=== PATIENT | female | born 1995 | race Caucasian/White ===

== ENCOUNTER 2023-01-04 11:17 | Emergency (ER) | payer BC, OTHER ==
[2023-01-04] MEDS ORDERED: Morphine 4 MG/ML VIAL ONE (12:07)
[2023-01-04] MEDS ORDERED: Ondansetron ODT 4 MG TAB ONE (12:07)
[2023-01-04] MEDS ORDERED: Lidocaine 1% (PF) 30 ML VIAL ONE (12:07)
== END 2023-01-04 13:11 | disposition home or self-care (01) ==
LOC: CSHERS 11:17
DX: N76.4 Abscess of vulva (principal); F17.290 Nicotine dependence, other tobacco product, uncomplicated; Z79.899 Other long term (current) drug therapy
CPT/HCPCS: 56405; 96372; J2001; J2270; Q0162

== ENCOUNTER 2023-09-29 14:47 | Emergency (ER) | payer BC ==
[2023-09-29 16:08] LABS: SARS-CoV-2 NAA Rapid Test Not Detected (NotDetected)
[2023-09-29 16:27] LABS: Bilirubin Neg (Negative); Blood, Urine Negative (Negative); Clarity Clear (Clear); Glucose, Urine (Dipstick) Normal (Negative); Ketone, Urine Negative (Negative); Leukocyte Negative (Negative); Nitrite Negative (Negative); Protein, Urine (Dipstick) 15 mg/dl (Neg-Trace); Urobilinogen Normal mg/dL (Less than 2)
[2023-09-29] MEDS ORDERED: Ondansetron PF 4 MG/2 ML Vial ONE (16:40)
[2023-09-29 16:41] LABS: Bacteria/HPF 1+ HPF (None Seen); CAUTI Indications for Culture Pregnancy; RBC/HPF 0-3 HPF (0-3); Squamous Epithelial 0-3 HPF (0-3); WBC/HPF 0-3 HPF (0-3)
[2023-09-29 16:43] LABS: Urine Culture Reflex Yes Yes
== END 2023-09-29 18:02 | disposition home or self-care (01) ==
LOC: CSHERS 14:47
DX: O99.512 Diseases of the respiratory system complicating pregnancy, second trimester (principal); J10.1 Influenza due to other identified influenza virus with other respiratory manifestations; I10 Essential (primary) hypertension; Z3A.24 24 weeks gestation of pregnancy; Z87.891 Personal history of nicotine dependence
CPT/HCPCS: 81001; 87077; 87086; 96374; J2405

== ENCOUNTER 2023-10-20 16:00 | Observation (INO) | payer BC ==
[2023-10-20 16:15] VITALS: BMI 25.0
[2023-10-20] MEDS ORDERED: Acetaminophen 500 MG TAB PO PRN (17:13)
[2023-10-20 17:38] LABS: #Eosinphils 0.2 10x3/uL (0.0-0.5); #Monocytes 0.6 10x3/uL (0.0-1.1); #Neutrophils 9.6 10x3/uL (1.5-8.4); %Basophils 0.3 % (0.0-2.0); %Eosinophils 1.7 % (0.0-6.0); %Lymphocytes 18.6 % (18.0-47.0); %Monocytes 4.2 % (0.0-10.0); %Neutrophils 74.4 % (40.0-75.0); Hematocrit 32.7 % (34.9-44.5); Hemoglobin 11.5 g/dL (12.0-15.5); Mean Corpuscular HGB CONC 35.2 g/dL (32.0-36.0); Mean Corpuscular Hemoglobin 31.3 pg (27.0-33.0); Mean Corpuscular Volume 89.1 fl (81.6-98.3); Platelet Count 339 10x3/uL (150-450); RBC Distribution Width 12.2 % (11.5-14.5); Red Blood Cell (RBC) Count 3.67 10x6/uL (3.90-5.03)
[2023-10-20 17:48] LABS: ALT (SGPT) 13 U/L (8-55); AST (SGOT) 15 U/L (5-34); Albumin 3.8 g/dL (3.5-5.0); Alkaline Phosphatase 86 U/L (40-110); Anion Gap 12 mmol/L (10-20); BUN (Urea Nitrogen) 5 mg/dL (7.0-18.7); Bilirubin, Total 0.5 mg/dL (0.2-1.2); Calc. Creatinine Clearance 116 mL/min (70-130); Calcium 8.8 mg/dL (7.8-10.44); Carbon Dioxide 22 mmol/L (22-29); Chloride 106 mmol/L (98-107); Estimated GFR 123; Globulin 3.3 g/dL (2.4-3.5); Glucose 82 mg/dL (70-105); Potassium 3.3 mmol/L (3.5-5.1); Protein, Total 7.1 g/dL (6.0-8.3); Sodium 137 mmol/L (136-145)
[2023-10-20 18:19] LABS: Bilirubin Neg (Negative); Blood, Urine 150 (Negative); Clarity Clear (Clear); Glucose, Urine (Dipstick) Normal (Negative); Ketone, Urine Negative (Negative); Leukocyte 500 (Negative); Nitrite Negative (Negative); Protein, Urine (Dipstick) 100 mg/dl (Neg-Trace); Specific Gravity, Urine 1.005 (1.005-1.030); Urobilinogen Normal mg/dL (Less than 2)
[2023-10-20] MEDS ORDERED: Ondansetron PF 4 MG/2 ML Vial IVP PRN (18:25)
[2023-10-20 18:26] LABS: Bacteria/HPF 4+ HPF (None Seen); CAUTI Indications for Culture Dysuria,urgency,freq; RBC/HPF 0-3 HPF (0-3); Squamous Epithelial 0-3 HPF (0-3)
[2023-10-20 18:27] LABS: Mucous/LPF 2+ LPF (<2+); Urine Culture Reflex Yes Yes
[2023-10-20] MEDS: Acetaminophen 500 MG TAB PO PRN (18:39)
[2023-10-20] MEDS: Potassium Chloride 20 MEQ TAB PO SCH (18:40)
[2023-10-20] MEDS: Lactated Ringer's 1,000 ML IV SCH (19:51)
[2023-10-20] MEDS: Piperacillin/Tazobactam 3.375 GM in Sodium Chloride 0.9% 100 ML IVPB SCH ×2 (19:52→22:04)
[2023-10-21 03:53] LABS: #Basophils 0.1 10x3/uL (0.0-0.2); #Eosinphils 0.3 10x3/uL (0.0-0.5); #Monocytes 0.7 10x3/uL (0.0-1.1); %Basophils 0.6 % (0.0-2.0); %Eosinophils 3.1 % (0.0-6.0); %Lymphocytes 28.6 % (18.0-47.0); %Monocytes 6.9 % (0.0-10.0); %Neutrophils 59.8 % (40.0-75.0); Hematocrit 28.7 % (34.9-44.5); Hemoglobin 9.9 g/dL (12.0-15.5); Mean Corpuscular HGB CONC 34.5 g/dL (32.0-36.0); Mean Corpuscular Hemoglobin 31.7 pg (27.0-33.0); Platelet Count 286 10x3/uL (150-450); RBC Distribution Width 12.4 % (11.5-14.5); Red Blood Cell (RBC) Count 3.12 10x6/uL (3.90-5.03)
[2023-10-21 03:59] LABS: Anion Gap 9 mmol/L (10-20); BUN (Urea Nitrogen) 6 mg/dL (7.0-18.7); Calc. Creatinine Clearance 119 mL/min (70-130); Calcium 7.9 mg/dL (7.8-10.44); Carbon Dioxide 21 mmol/L (22-29); Chloride 110 mmol/L (98-107); Estimated GFR 124; Glucose 78 mg/dL (70-105); Potassium 3.8 mmol/L (3.5-5.1); Sodium 136 mmol/L (136-145)
[2023-10-21] MEDS: Prenatal Vitamin 1 TAB PO SCH (09:25)
[2023-10-21] MEDS: FLUoxetine HCl 20 MG CAP PO SCH (09:25)
[2023-10-21] MEDS: HYDROcodone/Acetaminophen 5/325 mg Tablet PO PRN (23:18)
[2023-10-22 04:14] LABS: #Eosinphils 0.3 10x3/uL (0.0-0.5); #Monocytes 0.6 10x3/uL (0.0-1.1); #Neutrophils 7.4 10x3/uL (1.5-8.4); %Basophils 0.4 % (0.0-2.0); %Eosinophils 2.5 % (0.0-6.0); %Lymphocytes 25.4 % (18.0-47.0); %Monocytes 5.2 % (0.0-10.0); %Neutrophils 65.5 % (40.0-75.0); Hematocrit 30.7 % (34.9-44.5); Hemoglobin 10.7 g/dL (12.0-15.5); Mean Corpuscular HGB CONC 34.9 g/dL (32.0-36.0); Mean Corpuscular Hemoglobin 31.3 pg (27.0-33.0); Mean Corpuscular Volume 89.8 fl (81.6-98.3); Mean Platelet Volume 8.9 fl (7.4-10.4); Platelet Count 282 10x3/uL (150-450); RBC Distribution Width 12.4 % (11.5-14.5); Red Blood Cell (RBC) Count 3.42 10x6/uL (3.90-5.03); White Blood Cell (WBC) Count 11.2 10x3/uL (3.5-10.5)
[2023-10-22 04:43] LABS: Anion Gap 12 mmol/L (10-20); BUN (Urea Nitrogen) Less than 4 mg/dL (7.0-18.7); Calc. Creatinine Clearance 125 mL/min (70-130); Calcium 8.2 mg/dL (7.8-10.44); Carbon Dioxide 21 mmol/L (22-29); Chloride 109 mmol/L (98-107); Estimated GFR 125; Glucose 77 mg/dL (70-105); Potassium 3.7 mmol/L (3.5-5.1); Sodium 138 mmol/L (136-145)
[2023-10-22 07:27] VITALS: BP 111/70; TEMP 98.8
== END 2023-10-22 10:15 | disposition home or self-care (01) ==
LOC: CSHLD/OP 16:00 → CSHLD 18:25 → CSHANTE 20:42
PROVIDERS: ADMIT Family Medicine; ATTEND Family Medicine
DX: O99.891 Other specified diseases and conditions complicating pregnancy (principal); N13.2 Hydronephrosis with renal and ureteral calculous obstruction; M79.18 Myalgia, other site; O23.42 Unspecified infection of urinary tract in pregnancy, second trimester; Z3A.27 27 weeks gestation of pregnancy; Z88.1 Allergy status to other antibiotic agents; Z91.018 Allergy to other foods; Z79.2 Long term (current) use of antibiotics; Z79.1 Long term (current) use of non-steroidal anti-inflammatories (NSAID); Z79.891 Long term (current) use of opiate analgesic
CPT/HCPCS: 36415; 76775; 80048; 80053; 81001; 85025; 87077; 87086; 94760; 99285; J2543; J3490; J7120

== ENCOUNTER 2023-11-21 15:18 | Emergency (ER) | payer BC ==
[2023-11-21] MEDS ORDERED: Morphine 4 MG/ML VIAL ONE ×2 (15:59→17:10)
[2023-11-21] MEDS ORDERED: Ondansetron PF 4 MG/2 ML Vial ONE ×2 (15:59→17:10)
[2023-11-21 16:23] LABS: #Eosinphils 0.2 10x3/uL (0.0-0.5); #Monocytes 0.6 10x3/uL (0.0-1.1); #Neutrophils 11.1 10x3/uL (1.5-8.4); %Basophils 0.2 % (0.0-2.0); %Eosinophils 1.2 % (0.0-6.0); %Lymphocytes 16.8 % (18.0-47.0); %Monocytes 4.1 % (0.0-10.0); %Neutrophils 76.7 % (40.0-75.0); Hematocrit 38.6 % (34.9-44.5); Mean Corpuscular HGB CONC 33.7 g/dL (32.0-36.0); Mean Corpuscular Hemoglobin 31.2 pg (27.0-33.0); Mean Corpuscular Volume 92.6 fl (81.6-98.3); Mean Platelet Volume 9.6 fl (7.4-10.4); Platelet Count 381 10x3/uL (150-450); RBC Distribution Width 13.2 % (11.5-14.5); Red Blood Cell (RBC) Count 4.17 10x6/uL (3.90-5.03); White Blood Cell (WBC) Count 14.5 10x3/uL (3.5-10.5)
[2023-11-21 16:38] LABS: Bilirubin Neg (Negative); Blood, Urine 250 (Negative); Clarity Clear (Clear); Glucose, Urine (Dipstick) 100 mg/dL (Negative); Ketone, Urine Negative (Negative); Leukocyte 100 (Negative); Nitrite Negative (Negative); Protein, Urine (Dipstick) 100 mg/dl (Neg-Trace); Urobilinogen Normal mg/dL (Less than 2)
[2023-11-21 16:41] LABS: ALT (SGPT) 21 U/L (8-55); AST (SGOT) 24 U/L (5-34); Albumin 4.1 g/dL (3.5-5.0); Alkaline Phosphatase 117 U/L (40-110); Anion Gap 16 mmol/L (10-20); BUN (Urea Nitrogen) 8 mg/dL (7.0-18.7); Bilirubin, Total 0.3 mg/dL (0.2-1.2); Calc. Creatinine Clearance 0 mL/min (70-130); Calcium 9.5 mg/dL (7.8-10.44); Carbon Dioxide 21 mmol/L (22-29); Chloride 103 mmol/L (98-107); Estimated GFR 122; Globulin 3.9 g/dL (2.4-3.5); Glucose 121 mg/dL (70-105); Potassium 3.9 mmol/L (3.5-5.1); Sodium 136 mmol/L (136-145)
[2023-11-21 16:52] LABS: CAUTI Indications for Culture Urological Procedure
[2023-11-21 16:53] LABS: Bacteria/HPF 2+ HPF (None Seen); Calcium Oxalate Crystals 2+ HPF (None Seen); Mucous/LPF 1+ LPF (<2+); Squamous Epithelial 0-3 HPF (0-3)
[2023-11-21 16:54] LABS: Urine Culture Reflex Yes Yes
[2023-11-21 17:02] LABS: Bilirubin Neg (Negative); Blood, Urine 10 (Negative); Clarity Clear (Clear); Glucose, Urine (Dipstick) 100 mg/dL (Negative); Ketone, Urine Negative (Negative); Leukocyte Negative (Negative); Nitrite Negative (Negative); Protein, Urine (Dipstick) 30 mg/dl (Neg-Trace); Urobilinogen Normal mg/dL (Less than 2)
[2023-11-21] MEDS ORDERED: Morphine 2 MG/ML VIAL ONE (17:12)
[2023-11-21 17:34] LABS: Bacteria/HPF None Seen HPF (None Seen); CAUTI Indications for Culture Pregnancy; RBC/HPF 0-3 HPF (0-3); Squamous Epithelial 0-3 HPF (0-3); WBC/HPF 0-3 HPF (0-3)
== END 2023-11-21 17:55 | disposition home or self-care (01) ==
LOC: CSHERS 15:18
DX: O26.93 Pregnancy related conditions, unspecified, third trimester (principal); R10.9 Unspecified abdominal pain; O9A.213 Injury, poisoning and certain other consequences of external causes complicating pregnancy, third trimester; T83.84XA Pain due to genitourinary prosthetic devices, implants and grafts, initial encounter; Z87.891 Personal history of nicotine dependence
CPT/HCPCS: 80053; 81001; 83605; 85025; 87040; 87086; 96374; 96375; 96376; J2270; J2272; J2405

== ENCOUNTER 2025-06-03 09:22 | Inpatient (IN) | payer OTHER ==
[2025-06-03] MEDS ORDERED: Carboprost 250 MCG/ML AMP IM PRN (10:23)
[2025-06-03] MEDS ORDERED: Methylergonovine 0.2 MG/ML VIAL IM PRN (10:23)
[2025-06-03] MEDS ORDERED: Tranexamic Acid 1,000 MG/10 ML VIAL IVP PRN (10:23)
[2025-06-03] MEDS ORDERED: Lidocaine 1% (PF) 30 ML VIAL SC PRN (10:23)
[2025-06-03] MEDS ORDERED: hydrALAZINE 20 MG/ML VIAL SLOW IVP PRN ×2 (10:23)
[2025-06-03] MEDS ORDERED: Ibuprofen 800 MG TAB PO PRN (10:23)
[2025-06-03] MEDS ORDERED: Ondansetron PF 4 MG/2 ML Vial IVP PRN ×3 (10:23→21:41)
[2025-06-03] MEDS ORDERED: HYDROcodone/Acetaminophen 5/325 mg Tablet PO PRN (10:23)
[2025-06-03] MEDS ORDERED: Diphenoxylate HCl/Atropine Tablet PO PRN ×2 (10:23)
[2025-06-03] MEDS ORDERED: Oxytocin 30 units/NS 500 ML 500 ML IV SCH ×3 (10:30)
[2025-06-03 10:45] LABS: Hematocrit 38.5 % (34.9-44.5); Hemoglobin 12.8 g/dL (12.0-15.5); Mean Corpuscular Hemoglobin 30.3 pg (27.0-33.0); Mean Corpuscular Volume 91.0 fL (81.6-98.3); Platelet Count 302 10x3/uL (150-450); Red Blood Cell (RBC) Count 4.23 10x6/uL (3.90-5.03); White Blood Cell (WBC) Count 17.09 10x3/uL (3.5-10.5)
[2025-06-03] MEDS: Ondansetron PF 4 MG/2 ML Vial ONE (10:54)
[2025-06-03 11:07] VITALS: BMI 25.4
[2025-06-03 11:24] LABS: Hep B Surf Ag - L&D Non-Reactive S/CO (NonReactive)
[2025-06-03 11:26] LABS: Syphilis Antibody Index 3.08 S/CO (<1.00 Non-Reactive)
[2025-06-03] MEDS: Penicillin G Potassium 5 MILL.UNITS in Sodium Chloride 0.9% 100 ML IVPB SCH (11:28)
[2025-06-03 12:45] LABS: Syphilis Titer Non-Reactive Titer (Nonreactive)
[2025-06-03] MEDS: Penicillin G 2.5 MILL.units 2.5 MILL.UNITS in Premix 1 BAG IVPB SCH (16:14)
[2025-06-03] MEDS: fentaNYL/Ropivacaine Epidural 100 ML ONE (21:41)
[2025-06-03] MEDS ORDERED: diphenhydrAMINE 50 MG/ML VIAL IVP PRN (21:41)
[2025-06-03] MEDS ORDERED: Communication Order-Pharmacy FS SCH (21:45)
[2025-06-04] MEDS: fentaNYL 2 mcg/Ropivacaine 0.2% Epidural 100 ML CADD EPIDURAL SCH (09:58)
[2025-06-04] MEDS: Oxytocin 30 units/NS 500 ML 500 ML IV SCH (13:17)
[2025-06-04] MEDS ORDERED: hydrALAZINE 20 MG/ML VIAL SLOW IVP PRN (23:02)
[2025-06-04] MEDS ORDERED: Milk Of Magnesia 30 ML UDCUP PO PRN (23:02)
[2025-06-04] MEDS ORDERED: Bisacodyl 10 MG SUPP PR PRN (23:02)
[2025-06-04] MEDS ORDERED: Benzocaine-Menthol 82.5 ML CAN TOP PRN (23:02)
[2025-06-04] MEDS ORDERED: Lanolin Ointment 7 GM TUBE TOP PRN (23:02)
[2025-06-05] MEDS: Ibuprofen 800 MG TAB PO SCH ×2 (00:35→11:13)
[2025-06-05] MEDS: Cyclobenzaprine 10 MG TAB PO SCH (01:41)
[2025-06-05] MEDS: Ondansetron PF 4 MG/2 ML Vial IVP PRN (03:51)
[2025-06-05] MEDS: Acetaminophen 325 MG TAB PO PRN (05:45)
[2025-06-05 06:05] LABS: ALT (SGPT) 11 U/L (Less than 34); AST (SGOT) 24 U/L (11-34); Albumin 2.1 g/dL (3.1-4.5); Alkaline Phosphatase 78 U/L (40-110); Anion Gap 12 mmol/L (10-20); BUN (Urea Nitrogen) 5 mg/dL (7.0-18.7); Bilirubin, Total 0.5 mg/dL (0.3-1.2); Calc. Creatinine Clearance 122 mL/min (70-130); Calcium 8.1 mg/dL (7.8-10.44); Carbon Dioxide 19 mmol/L (22-29); Chloride 110 mmol/L (98-107); Globulin 3.0 g/dL (2.4-3.5); Glucose 145 mg/dL (70-105); Potassium 3.6 mmol/L (3.5-5.1); Sodium 137 mmol/L (136-145)
[2025-06-05] MEDS: Boostrix 0.5 ML (Tdap) VIAL (>/=7 yrs of age) IM ONE (07:50)
[2025-06-05] MEDS: Ferrous Sulfate 325 MG TAB PO SCH (10:04)
[2025-06-05] MEDS: Cyclobenzaprine 10 MG TAB PO PRN (11:17)
[2025-06-05] MEDS: Ibuprofen 200 MG TAB PO PRN (19:44)
[2025-06-06 07:52] LABS: #Basophils 0.04 10x3/uL (0.0-0.2); #Eosinophils 0.40 10x3/uL (0.0-0.5); #Monocytes 0.61 10x3/uL (0.0-1.1); #Neutrophils 8.23 10x3/uL (1.5-8.4); %Basophils 0.3 % (0.0-2.0); %Eosinophils 3.1 % (0.0-6.0); %Lymphocytes 28.3 % (18.0-47.0); %Monocytes 4.7 % (0.0-10.0); %Neutrophils 62.7 % (40.0-75.0); Hematocrit 25.0 % (34.9-44.5); Hemoglobin 8.3 g/dL (12.0-15.5); Mean Corpuscular Hemoglobin 30.6 pg (27.0-33.0); Mean Corpuscular Volume 92.3 fL (81.6-98.3); Platelet Count 249 10x3/uL (150-450); Red Blood Cell (RBC) Count 2.71 10x6/uL (3.90-5.03); White Blood Cell (WBC) Count 13.11 10x3/uL (3.5-10.5)
[2025-06-06 07:57] VITALS: BP 112/61; TEMP 98.1
[2025-06-06 08:11] LABS: ALT (SGPT) 11 U/L (Less than 34); AST (SGOT) 21 U/L (11-34); Albumin 1.9 g/dL (3.1-4.5); Alkaline Phosphatase 71 U/L (40-110); Anion Gap 12 mmol/L (10-20); BUN (Urea Nitrogen) 6 mg/dL (7.0-18.7); Bilirubin, Total 0.1 mg/dL (0.3-1.2); Calc. Creatinine Clearance 118 mL/min (70-130); Calcium 8.0 mg/dL (7.8-10.44); Carbon Dioxide 21 mmol/L (22-29); Chloride 110 mmol/L (98-107); Globulin 2.7 g/dL (2.4-3.5); Glucose 82 mg/dL (70-105); Potassium 3.5 mmol/L (3.5-5.1); Sodium 139 mmol/L (136-145)
== END 2025-06-06 14:45 | disposition home or self-care (01) | DRG 806 ==
LOC: CSHLD/OP 09:22 → EEVIPCON 09:22 → CSHLD 10:27 → CSHPED 06-05 02:20
PROVIDERS: ADMIT Family Medicine; ATTEND Family Medicine
PROC: 10E0XZZ Delivery of Products of Conception, External Approach (ICD-10-PCS; principal; 2025-06-04)
PROC: 0KQM0ZZ Repair Perineum Muscle, Open Approach (ICD-10-PCS; 2025-06-04)
PROC: 10907ZC Drainage of Amniotic Fluid, Therapeutic from Products of Conception, Via Natural or Artificial Opening (ICD-10-PCS; 2025-06-04)
PROC: 10H073Z Insertion of Monitoring Electrode into Products of Conception, Via Natural or Artificial Opening (ICD-10-PCS; 2025-06-04)
PROC: 10H07YZ Insertion of Other Device into Products of Conception, Via Natural or Artificial Opening (ICD-10-PCS; 2025-06-04)
DX: O60.14X0 Preterm labor third trimester with preterm delivery third trimester, not applicable or unspecified (principal); D62 Acute posthemorrhagic anemia; Z37.0 Single live birth; O98.12 Syphilis complicating childbirth; Z3A.35 35 weeks gestation of pregnancy; Z88.8 Allergy status to other drugs, medicaments and biological substances; O99.824 Streptococcus B carrier state complicating childbirth; O90.1 Disruption of perineal obstetric wound; O99.02 Anemia complicating childbirth
CPT/HCPCS: 51702; 80053; 85025; 85027; 86593; 86780; 86850; 86900; 86901; 87340; 99285; J2540; J2590